=== PATIENT | male | born 1990 | race Caucasian/White ===

== ENCOUNTER → 2022-05-19 15:57 | Outpatient (CLI) | payer BC, SELFPAY ==
[2022-05-19 16:49] LABS: Semen Viscosity Normal (Normal)
[2022-05-19 16:51] LABS: WBCs,Semen Negative
[2022-05-19 16:58] LABS: Motility Quality Rapid Progression (Mod-Rapid); Sperm Motility 90 % (50-90)
[2022-05-19 17:01] LABS: Sperm Morphology Normal (Normal)
[2022-05-19 19:17] LABS: 3Hr Motility Quality Good Progression (Mod-Rapid); 3Hr Sperm Motility 65 % (50-60)
[2022-05-19 19:21] LABS: Sperm Count 28 mil/mm3 (20-160)
== END ==
PROVIDERS: PCP Family Medicine; Visit Provider Obstetrics & Gynecology
DX: N46.9 Male infertility, unspecified (principal)
CPT/HCPCS: 89320

== ENCOUNTER 2025-02-10 21:10 | Emergency (ER) | payer BC, SELFPAY ==
[2025-02-10 21:16] VITALS: BP 160/75; PULSE 62; RESP 17; TEMP 37.1; O2SAT 95; BMI 26.5
--- OUTSIDE RECORDS SUMMARY | 2025-02-10 21:30 | XMS_ITS | Clinical Summary ---
Author Organization [facility] Address [address] [place] [id number] Phone Care Team Providers Care Customer Account Administrator Name Role Phone Hossein Ridley MD Primary Care Provider + [phone] Social History Tobacco Use Types Packs/Day Years Used Date Smoking Tobacco: Never Assessed Sex and Gender Information Value Date Recorded Sex Assigned at Not on file Legal Sex Male 9:14 PM EDT Gender Identity Not on file Sexual Orientation Not on file Plan of Treatment Health Maintenance Due Date Last Done Comments Annual Wellness Exam 1993 DTaP/TDaP/Td (1 - Tdap) 2009 Hepatitis B Vaccine (1 of 3 - 19+ 3-dose series) 2009 COVID-19 Vaccine ( - 2023-2 5 season) 2025 Influenza Vaccine (#1) 2025 Meningococcal B Vaccine Aged Out No l onger eligible based on patient's age to complete this topic Pneumococcal Vaccine 0-49 Aged Out No longer eligible based on patient's age to complete this topic Insurance [id number] Care Teams Customer Account Administrator Relationship Specialty Start Date End Date Hossein Ridley MD [address] [place] [address] PCP - General Family Medicine 10/29/13
--- NOTE | 2025-02-10 21:58 | ED_ITS ---
Discharge Plan Disposition Patient Disposition: Home, Self-Care Condition: Good Prescriptions Prescriptions: No Action Claritin-D 12 Hour 5-120 mg tablet extended release 12 hr 1 tab PO Q12H PRN (Reason: allergy symptoms) Qty: 30 2RF fluticasone propionate [Flonase Allergy Relief] 50 mcg/actuation spray,suspension 1 spray intranasal DAILY Qty: 16 2RF Rx Instructions: administer into each nostril prednisone 20 mg tablet 20 mg PO .COMPLEX Qty: 15 0RF Rx Instructions: 20 mg orally BID x 5 days then daily x 5 days Referrals Follow up/Referrals: Juan Antonio Puga APRN [Primary Care Provider, Family Practice] - See instructions Activity Restrictions/Add. Instructions Additional Instructions/Restrictions: Take tylenol and ibuprofen for pain control if needed. Wear the thumb splint if needed for support. Follow-up with primary care in 1 week and ask for repeat x-ray if you are having any new or worsening pain or if you feel like it is not healing up well. Return to the ER with any new, worsening, or otherwise concerning symptoms. Clinical Impressions Clinical Impression: Pain of right thumb, Crushing injury of right hand Print Language Print Language: Urdu Discharge ED Provider: Matt Ferguson General Adult HPI <Diamond Ruiz, DO - Last Filed: 02/11/25 00:19> General Chief complaint: Extremity Injury, Lower Stated complaint: AO 9-21 right hand pain Time Seen by Provider: 02/10/25 21:58 Mode of Arrival: Ambulatory Description of Symptoms (Recalled from ER Triage Doc. by RN): Patient states around 1999 he hit his hand on a car door, states outside rim caught his right thumb. States he tried tylenol 100mg with some relief. Swelling present without discoloration. PMS intact. History of Present Illness HPI narrative: Patient is an otherwise healthy 35-year-old male who presented to the emergency department with right thumb pain. Patient states that he hit it on the open car door. It was not slammed in the door. Patient is reporting pain on the palmar aspect near his hypothenar eminence. Denies any numbness or weakness. Patient reported significant swelling that has improved after ice. Patient took Tylenol prior to arrival. Patient has no other complaints at this time. Related Data Previous Rx's ?Medication ?Instructions ?Recorded fluticasone propionate 50 1 spray intranasal DAILY #16 grams 10/07/23 mcg/actuation nasal spray,suspension (Flonase Allergy Relief) loratadine 5 mg-pseudoephedrine ER 1 tab PO Q12H PRN a llergy symptoms 10/07/23 120 mg tablet,extended #30 tabs release,12hr (Claritin-D 12 Hour) prednisone 20 mg tablet 20 mg PO .COMPLEX #15 tabs 0 12/12/24 Allergies Allergy/AdvReac Type Severity Reaction Status Date / Time NKDA Allergy Unknown Uncoded 12/16/23 15:15 PFS <Diamond Ruiz DO - Last Filed: 02/11/25 00:19> [facility] Disclaimer: The information contained in this section may have been updated after the patient was seen, as this information can be updated by other users. Medical History Heart murmur Family History Other Diabetes Social History Smoking Status: Light tobacco smoker alcohol intake: current current occupational status: employed Travel in the last 8 weeks?: None Have you lived/traveled outside US in past 30 days?: No Contact w/someone who lives/traveled outside US past 30 days?: No Exposure to someone with infectious disease in past 14 days?: No Do you have a fever (greater than 100.4 F or 38 C)?: No Have you tested positive for COVID-19?: No Exposed to someone with COVID-19 in past 14 days?: No Do you have a sore throat?: No Do you have a cough?: No Do you have any weakness?: No Do you have any diarrhea?: No Are you experiencing any unusual bleeding?: No Do you have any muscle aches/pain?: No Do you have any abdominal pain?: No Are you experiencing loss of taste or smell?: No <Diamond Ruiz DO - Last Filed: 02/11/25 00:19> ROS Obtained: Yes All systems reviewed & no additional complaints except as documented and Yes Systems reviewed as appropriate & no additional complaints except as documented <Matt Ferguson MD - Last Filed: 02/10/25 23:20> ROS Obtained: Yes Systems reviewed as appropriate & no additional complaints except as documented Physical Exam <Diamond Ruiz DO - Last Filed: 02/11/25 00:19> General General appearance: alert and in no apparent distress Head Head exam: atraumatic, normocephalic and normal inspection Eye Eye exam: Present normal appearance, PERRL and EOMI; Absent scleral icterus ENT ENT exam: Present normal exam and normal external ear exam Neck Neck exam: Present normal inspection and full ROM Chest Chest inspection: Present normal inspection and symmetric chest wall rise Respiratory Respiratory exam: Present normal lung sounds bilaterally; Absent respiratory distress or wheezes Cardiovascular Cardiovascular exam: Present regular rate, normal rhythm and normal heart sounds Abdominal Exam Abdominal exam: Present soft and distention; Absent tenderness, guarding or rebound Extremities Exam Extremities exam: Present normal inspection, full ROM and other (R thumb with tenderness of the R hypothenar eminence, no snuffbox tenderness, FROM, no wrist tenderness) Back Exam Back exam: Present normal inspection and full ROM Neurological Exam Neurological exam: Present alert, oriented X3 and other (NVI in the right hand) Psychiatric Psychiatric exam: Present normal affect and normal mood Skin Skin exam: Present warm and dry Medical Decision Making <Diamond Ruiz DO - Last Filed: 02/11/25 00:19> Medical Records Screening: Per USPSTF and CDC recommendations, given the prevalence of disease in our region, it is our hospital?s policy to screen for HIV and viral Hepatitis for all patients aged 18 and over and those with ongoing risk factors. Vital Signs: 02/10/25 21:16 02/10/25 23:20 Temperature 98.8 F 97.9 F Temperature Source Oral Temporal Artery Scan Pulse Rate 59 L Pulse Rate [Right] 62 Respiratory Rate 17 17 Blood Pressure 115/74 Blood Pressure [Right Arm] 160/75 H Blood Pressure Mean [Right Arm] 103 Blood Pressure Source Automatic Cuff Blood Pressure Source [Right Arm] Automatic Cuff Blood Pressure Position Sitting Blood Pressure Position [Right Arm] Sitting 02 Sat by Pulse Oximetry 95 Oxygen Delivery Method Room Air Lab Data Lab results reviewed: Yes I reviewed the patient's lab results. Orders (Tests/Meds): ED MEDICATIONS Discontinued Medications Generic Name Dose Route Start Last Admin Trade Name Freq PRN Reason Stop Dose Admin Ibuprofen 800 mg 02/10/25 22:11 02/10/25 22:20 Ibuprofen 800 Mg Tablet PO 02/10/25 22:12 800 mg ONCE ONE Administration ORDERS Category Date Time Status XR hand RT min 3V Stat Exams 02/10/25 22:00 Completed Medical Decision Narrative: Patient is an otherwise healthy 35-year-old male who presented to the emergency department with right thumb pain after hitting it on an open car door. On arrival, patient was hemodynamically stable with unremarkable vital signs. Differential included but not limited to: Fracture, dislocation, sprain, strain, amongst others. On exam, patient had hyperthenar eminence tenderness but had no snuffbox tender ness no dorsal hand tenderness. Patient had no wrist tenderness. Patient was neurovascularly intact with appropriate radial pulse. X-ray was obtained, and patient was given Motrin in the emergency department for further pain control. Patient was signed out to the oncoming provider Dr. Ferguson pending final XR read and final disposition. Ferguson: I assumed care of this patient at 2300 hrs. At that time patient's x-ray read was pending. I examined the patient and he is neurovascularly intact with good range of motion but he does have moderate tenderness over the thenar eminence with no deformity. There is no significant tenderness over the scaphoid. I agree with the assessment and plan from Dr. Ruiz. On my personal interpretation of x-ray there is no acute osseous injury. See radiology read for final interpretation Which is pending at this time. Patient would prefer rather than wait for radiology read to be placed in a removable splint and I will call him if the read is positive for fracture. I believe this is reasonable. Removable thumb spica splint was applied and patient was instructed on use of this as needed. I also instructed him on follow-up for repeat imaging in 1 week if he is having persistent or worsening pain. Patient was given instructions on symptomatic management, follow up instructions, and return precautions for the emergency department. Patient ind icated understanding and was discharged in stable condition. Immediately before patient walked out of the ER his radiology read resulted negative for fracture. It commented on potentially obtaining dedicated wrist radiographs but patient did not have any injury to the wrist and has no pain, tenderness, swelling, or bruising in the wrist. I do not believe dedicated wrist films are indicated. I updated the patient and reiterated that he can wear the thumb spica splint as needed for comfort but if his symptoms improve he does not have to wear it. He indicated understanding. He ambulated ind ependently from the ER in stable condition. <Matt Ferguson MD - Last Filed: 02/10/25 23:20> [facility] Inquiry Pt receiving controlled substance: No Vital Signs: 02/10/25 21:16 02/10/25 23:20 Temperature 98.8 F 97.9 F Temperature Source Oral Temporal Artery Scan Pulse Rate 59 L Pulse Rate [Right] 62 Respiratory Rate 17 17 Blood Pressure 115/74 Blood Pressure [Right Arm] 160/75 H Blood Pressure Mean [Right Arm] 103 Blood Pressure Source Automatic Cuff Blood Pressure Source [Right Arm] Automatic Cuff Blood Pressure Position Sitting Blood Pressure Position [Right Arm] Sitting 02 Sat by Pulse Oximetry 95 Oxygen Delivery Method Room Air Orders (Tests/Meds): ED MEDICATIONS Discontinued Medications Generic Name Dose Route Start Last Admin Trade Name Freq PRN Reason Stop Dose Admin Ibuprofen 800 mg 02/10/25 22:11 02/10/25 22:20 Ibuprofen 800 Mg Tablet PO 02/10/25 22:12 800 mg ONCE ONE Administration ORDERS Category Date Time Status XR hand RT min 3V Stat Exams 02/10/25 22:00 Completed Medical Decision Narrative: Ferguson: I assumed care of this patient at 2300 hrs. At that time patient's x-ray read was pending. I examined the patient and he is neurovascularly intact with good range of motion but he does have moderate tenderness over the thenar eminence with no deformity. There is no significant tenderness over the scaphoid. I agree with the assessment and plan from Dr. Ruiz. On my personal interpretation of x-ray there is no acute osseous injury. See radiology read for final interpretation Which is pending at this time. Patient would prefer rather than wait for radiology read to be placed in a removable splint and I will call him if the read is positive for fracture. I believe this is reasonable. Removable thumb spica splint was applied and patient was instructed on use of this as needed. I also instructed him on follow-up for repeat imaging in 1 week if he is having persistent or worsening pain. Patient was given instructions on symptomatic management, follow up instructions, and return precautions for the emergency department. Patient indicated understanding and was discharged in stable condition. Immediately before patient walked out of the ER his radiology read resulted negative for fracture. It commented on potentially obtaining dedicated wrist radiographs but patient did not have any injury to the wrist and has no pain, tenderness, swelling, or bruising in the wrist. I do not believe dedicated wrist films are indicated. I updated the patient and reiterated that he can wear the thumb spica splint as needed for comfort but if his symptoms improve he does not have to wear it. He indicated understanding. He ambulated independently from the ER in stable condition. Critical Care <Matt Ferguson MD - Last Filed: 02/10/25 23:20> Critical Care Time Critical Care Time: No
--- NOTE | 2025-02-10 22:00 | XR_ITS ---
PROCEDURE INFORMATION: Exam: XR Right Hand Exam date and time: 02/10/2025 10:38 PM Age: 35 years old Clinical indication: Injury or trauma; Other: Hand injury from car door TECHNIQUE: Imaging protocol: Radiologic exam of the right hand. Views: 3 or more views. COMPARISON: No relevant prior studies available. FINDINGS: Bones/joints: No evidence of acute fracture. Soft tissues: No significant focal soft tissue swelling. IMPRESSION: No evidence of acute fracture. If symptoms persist, recommend repeat radiograph in 5-7 days. COMMENTS: If there is clinical concern for wrist fracture, recommend further evaluation with dedicated wrist radiographs.
[2025-02-10] MEDS: IBUPROFEN 800 MG TABLET PO (22:20)
[2025-02-10 23:20] VITALS: BP 115/74; PULSE 59; RESP 17; TEMP 36.6; O2SAT 98
== END 2025-02-10 23:21 | disposition home or self-care (01) ==
PROVIDERS: Emergency Provider Emergency Medicine; PCP Nurse Practitioner Family
DX: S67.21XA Crushing injury of right hand, initial encounter (principal); W23.0XXA Caught, crushed, jammed, or pinched between moving objects, initial encounter
CPT/HCPCS: 73130; 99283